=== PATIENT | male | born 1975 | race Caucasian/White ===

== ENCOUNTER 2024-10-27 19:08 | Emergency (ER) | payer BC, SELFPAY ==
[2024-10-27 19:15] VITALS: BP 149/83; PULSE 65; RESP 20; TEMP 37.1; O2SAT 99
[2024-10-27 19:52] LABS: Add Manual Diff / Slide Review NO; Basophils Absolute Auto 100 /uL (0-100); Basophils Percent Auto 1.1 % (0-2); Eosinophils Absolute Auto 200 /uL (0-450); Eosinophils Percent Auto 2.8 % (2-4); Hematocrit 45.5 % (41-53); Hemoglobin 15.7 g/dL (13.5-17.5); Lymphocytes Absolute Auto 3100 /uL (1100-4500); Lymphocytes Percent Auto 44.3 % (25-40); Mean Corpuscular HGB Conc 34.4 % (30-36); Monocytes Absolute Auto 600 /uL (0-900); Monocytes Percent Auto 8.3 % (3-14); Neutrophils Absolute Auto 3000 /uL (1500-7000); Neutrophils Percent Auto 43.5 % (50-75); Platelet Count 251 X10^3/uL (150-400); Red Blood Cell Count 4.75 X10^6/uL (4.5-5.9); Red Cell Distribution Width 13.4 % (11.6-14.8)
[2024-10-27 19:53] LABS: Appearance Urine UA CLEAR; Bilirubin Urine UA NEGATIVE (NEGATIVE); Color Urine UA YELLOW; Glucose Urine UA NEGATIVE (Negative); Ketones Urine UA NEGATIVE (NEGATIVE); Leukocyte Esterase Urine UA NEGATIVE (NEGATIVE); Nitrite Urine UA NEGATIVE (Negative); Occult Blood Urine UA NEGATIVE (Negative); Protein Urine UA NEGATIVE (Negative); Specific Gravity Urine UA 1.025 (1.000-1.035); Urobilinogen Urine UA 0.2 E.U./dL (0.2)
[2024-10-27 19:58] LABS: Ur Creatinine Normal (Normal); Ur Specific Gravity Normal (Normal); Urine pH Normal (Normal)
[2024-10-27 19:59] LABS: UR Morphine/Opiate cutoff 300 Negative (Negative); Urine Amphetamines Negative (Negative); Urine Barbiturates Negative (Negative); Urine Benzodiazepines Positive (Negative); Urine Cocaine Negative (Negative); Urine MDMA Negative (Negative); Urine Methadone Negative (Negative); Urine Methamphetamines Negative (Negative); Urine Oxycodone Negative (Negative); Urine Phencyclidine Negative (Negative); Urine Tetrahydrocannabinol Positive (Negative); Urine Tricyclic Antidepressant Negative (Negative)
[2024-10-27 20:09] LABS: Acetaminophen < 10 ug/mL (10-30); Alanine Aminotransferase 31 IU/L (<50); Albumin 4.7 g/dL (3.5-5.0); Albumin Globulin Ratio 1.4 (1.0-2.8); Alkaline Phosphatase 100 U/L (38-126); Aspartate Aminotransferase 37 IU/L (17-59); BUN Creatinine Ratio 12.5 (6-22); Blood Urea Nitrogen 12 mg/dL (9-20); Calcium 9.3 mg/dL (8.4-10.2); Carbon Dioxide 25 mmol/L (22-32); Chloride 107 mmol/L (98-107); Estimated Glomerular Filt Rate > 60 mL/min (>60); Ethanol (ETOH) < 10 mg/dL; Globulin 3.4 g/dL (1.7-4.1); Glucose 121 mg/dL (70-100); HEMOLYSIS < 15 (0-50); Potassium 3.7 mmol/L (3.4-5.1); Salicylate < 1.0 mg/dL (<20); Sodium 141 mmol/L (137-145); Total Protein 8.1 g/dL (6.3-8.2)
[2024-10-27 20:32] LABS: Free T4, Direct Thyroxine 1.14 ng/dL (0.78-2.19)
--- NOTE | 2024-10-27 20:42 | ED.PSYCH ---
HPI - Psych General Chief Complaint: Psychiatric Symptoms Stated Complaint: SI Time Seen by Provider: 10/27/24 20:41 Source: patient Mode of arrival: Ambulatory History of Present Illness HPI Narrative: 48-year-old male with history of psychiatric disorder, had been prescribed multiple medications, [facility] [place] [facility] [place] [place], not yet established with mental health professional system. Apparently they had frustration trying to get their chronic medications refilled, 1 of his 5 chronic medications was unable to be refilled by pharmacy. Apparently that he would him quite anxious, feeling quite panicked, requesting that he needs to be placed in an institution, might hurt himself. No specific plan. Related Data Home Medications Medication Instructions Recorded Confirmed alprazolam 1 mg tablet 1 mg PO BID PRN Anxiety 10/27/24 10/27/24 paroxetine HCl 40 mg tablet 40 mg PO DAILY 10/27/24 10/27/24 propranolol 40 mg tablet 40 mg PO TID 10/27/24 10/27/24 quetiapine 100 mg tablet 100 mg PO ONCE PM 10/27/24 10/27/24 zolpidem 10 mg tablet 10 mg PO ONCE PM PRN insomnia 10/27/24 10/27/24 Allergies Allergy/AdvReac Type Severity Reaction Status Date / Time No Known Drug Allergies Allergy Verified 10/27/24 19:28 Review of Systems Review of Systems Narrative: see HPI Exam Narrative Exam Narrative: GENERAL: Well-developed patient, in mild distress. HEAD: Atraumatic. Normocephalic. EYES: Pupils equal round and reactive. Extraocular motions intact. No scleral icterus. No injection or drainage. ENT: Nose without bleeding, purulent drainage. Throat without erythema, tonsillar hypertrophy or exudate. Airway patent. NECK: Trachea midline. Non tender CARDIOVASCULAR: Regular rate and rhythm without murmurs, gallops, or rubs. RESPIRATORY: Clear to auscultation. Breath sounds equal bilaterally. No wheezes, rales, or rhonchi. GASTROINTESTINAL: Abdomen soft, non-tender, nondistended. EXTREMITIES: No edema or joint tenderness. BACK: Nontender without deformity or crepitance. No flank tenderness. NEURO: AOx3. Motor functions grossly nonfocal Psychiatric: Poor eye contact, pacing, redirectable, denied starting hurting himself or others but nursing reports that he had suicidal ideation per phone between nursing and . SKIN: No rash or erythema of visible areas Initial Vital Signs Initial Vital Signs: Vital Signs Temperature 98.8 F 10/27/24 19:15 Pulse Rate 65 10/27/24 19:15 Respiratory Rate 20 10/27/24 19:15 Blood Pressure 149/83 H 10/27/24 19:15 Pulse Oximetry 99 10/27/24 19:15 Oxygen Delivery Method Room Air 10/27/24 19:15 Course Orders Ordered: ED Orders 10/27/24 19:19 Consult to LOGISTICS MANAGER - Air[employer]er Stat 10/27/24 19:28 COVID19 -Nasal RAPID Stat 10/27/24 19:30 Urine Drug Screen, Rapid Stat 10/27/24 19:40 Acetaminophen Stat Complete Blood Count AUTO DIFF Stat Comprehensive Metabolic Panel Stat Ethanol (ETOH) Stat Free T4, Direct Thyroxine Stat Salicylate Stat Thyroid Stimulating Hormone Stat UA Screen [Urinalysis Screen (Dip Only)] Stat Discontinued Medications Alprazolam (Alprazolam 0.25 Mg Tablet) 1 mg PO NOW ONE Stop: 10/27/24 21:56 Ondansetron HCl (Ondansetron 4 Mg Odt) 4 mg SL NOW ONE Stop: 10/28/24 00:09 Last Admin: 10/28/24 00:11 Dose: 4 mg Documented By: ARMIDA Pantoprazole Sodium (Pantoprazole Dr 20 Mg Tablet) 20 mg PO NOW ONE Stop: 10/28/24 00:09 Paroxetine HCl (Paroxetine 20 Mg Tablet) 40 mg PO DAILY SHAYNE Propranolol HCl (Propranolol 10 Mg Tablet) 40 mg PO TID SHAYNE Propranolol HCl (Propranolol 10 Mg Tablet) 40 mg PO TID SHAYNE Quetiapine Fumarate (Quetiapine 25 Mg Tablet) 50 mg PO NOW ONE Stop: 10/27/24 21:54 Zolpidem Tartrate (Zolpidem 5 Mg Tablet) 10 mg PO BEDTIME PRN PRN Reason: Sleep Vital Signs Vital signs: Vital Signs - 8 hr 10/27/24 19:15 Temperature 98.8 F Pulse Rate 65 Respiratory Rate 20 Blood Pressure 149/83 H Pulse Oximetry 99 Oxygen Delivery Method Room Air MDM - Psych Lab Data Attestation: I reviewed the patient's lab results. Lab results narrative: White blood cell count 7000, hemoglobin 15.7, platelets adequate. Basic metabolic panel unremarkable. Liver functions unremarkable. Urine drug screen positive for benzodiazepine and marijuana otherwise negative. Ethanol level negative. Acetaminophen/salicylate levels nonmeasurable. 10/27/24 19:40 10/27/24 19:40 Labs: Lab Results 10/27/24 10/27/24 Range/Units 19:30 19:40 WBC 7.0 (4.5-11.0) X10^3/uL RBC 4.75 (4.5-5.9) X10^6/uL Hgb 15.7 (13.5-17.5) g/dL Hct 45.5 (41-53) % MCV 96.0 (80-100) fL MCH 33.0 (26-34) PG MCHC 34.4 (30-36) % RDW 13.4 (11.6-14.8) % Plt Count 251 (150-400) X10^3/uL Neut % (Auto) 43.5 L (50-75) % Lymph % (Auto) 44.3 H (25-40) % Douglas % (Auto) 8.3 (3-14) % Eos % (Auto) 2.8 (2-4) % Baso % (Auto) 1.1 (0-2) % Neut # (Auto) 3000 (3571-2796) /uL Lymph # (Auto) 3100 (2577-5683) /uL Douglas # (Auto) 600 (0-900) /uL Eos # (Auto) 200 (0-450) /uL Baso # (Auto) 100 (0-100) /uL Sodium 141 (137-145) mmol/L Potassium 3.7 (3.4-5.1) mmol/L Chloride 107 (98-107) mmol/L Carbon Dioxide 25 (22-32) mmol/L BUN 12 (9-20) mg/dL Creatinine 0.96 (0.66-1.25) mg/dL Estimated GFR > 60 (>60) mL/min BUN/Creatinine Ratio 12.5 (6-22) Glucose 121 H (70-100) mg/dL Calcium 9.3 (8.4-10.2) mg/dL Total Bilirubin 1.0 (0.2-1.3) mg/dL AST 37 (17-59) IU/L ALT 31 (<50) IU/L Alkaline Phosphatase 100 (38-126) U/L Total Protein 8.1 (6.3-8.2) g/dL Albumin 4.7 (3.5-5.0) g/dL Globulin 3.4 (1.7-4.1) g/dL Albumin/Globulin Ratio 1.4 (1.0-2.8) TSH 4.58 (0.47-4.68) uIU/mL Free T4 1.14 (0.78-2.19) ng/dL Urine Color Yellow Urine Appearance Clear Ur Specific Becker 1.025 (1.000-1.035) Urine Protein Negative (Negative) Urine Glucose (UA) Negative (Negative) g/dL Urine Ketones Negative (NEGATIVE) Urine Occult Blood Negative (Negative) Urine Nitrate Negative (Negative) Urine Bilirubin Negative (NEGATIVE) Urine Urobilinogen 0.2 (0.2) E.U./dL Ur Leukocyte Esterase Negative (NEGATIVE) Salicylates < 1.0 (<20) mg/dL U Opiates 300ng/mL cut Negative (Negative) Ur Oxycodone Screen Negative (Negative) Urine Methadone Screen Negative (Negative) Acetaminophen < 10 (10-30) ug/mL Ur Barbiturates Screen Negative (Negative) U Tricyclic Antidepress Negative (Negative) Ur Phencyclidine Scrn Negative (Negative) Ur Amphetamines Screen Negative (Negative) U Methamphetamines Scrn Negative (Negative) Ur MDMA Scrn (Ecstasy) Negative (Negative) U Benzodiazepines Scrn Positive H (Negative) Urine Cocaine Screen Negative (Negative) U Marijuana (THC) Screen Positive H (Negative) Urine pH Normal 7.0 (Normal) Urine Specific Becker Normal (Normal) Ethyl Alcohol < 10 ( - 10) mg/dL Ur Creatinine Normal (Normal) [facility] Narrative Medical decision making narrative: 48-year-old male with psychiatric disorder apparently some pharmacy barrier to 1 of his chronic psychiatric medications, feels quite anxious, making apparent suicidal ideation per phone call triage nurse with his , patient not admitting to me that he is having thoughts of hurting himself or others. But he feels that he needs to be an inpatient. Screening labs sent, unremarkable. business services representative consult requested. Medication query, 5 medications listed, some have evening doses, we will attempt to give evening doses of his chronic psychiatric medication list. 2200, orders for listed medications entered. Alprazolam, paroxetine, propranolol, quetiapine, zolpidem. Meds were ordered, brought to the patient's bedside, apparently he did not want to take the medications. No family here. He is requesting to leave. We will consult GARRY. [id number], RN consult by phone with GARRY, who will be evaluating the patient. 013, evaluation by GARRY, plan for discharge home now, lives nearby with , who has been in contact by phone, patient has medications at home, crisis team to contact patient further at 11 later this morning. Return precautions discussed. Discharged home Discharge Plan Departure Patient Disposition: Home Clinical Impression: Anxiety Activity Restrictions/Additional Instructions: Worsening anxiety, screening labs unremarkable. Consultation with crisis counselor. Coordination with outpatient crisis team 11:00 a.m. later this morning. Continue chronic medications at home. Return earlier to this/nearest emergency department for any change worsening symptoms or any concerns prior Prescriptions: No Action alprazolam 1 mg tablet 1 mg PO BID PRN (Reason: Anxiety) quetiapine 100 mg tablet 100 mg PO ONCE PM propranolol 40 mg tablet 40 mg PO TID zolpidem 10 mg tablet 10 mg PO ONCE PM PRN (Reason: insomnia) paroxetine HCl 40 mg tablet 40 mg PO DAILY Referrals: Miscellaneous,Doctor, MD [Primary Care Provider] - Stand Alone Forms: Patient Portal/API/Survey
[2024-10-27 20:46] LABS: Thyroid Stimulating Hormone 4.58 uIU/mL (0.47-4.68)
--- NOTE | 2024-10-27 22:24 | PC.NURSE ---
POST FRAMER Note Patient is pacing room the nurse attempted to give meds and patient refused after nurse left the room patient bit his name band off and took off his shirt and socks. This POST FRAMER told another caregiver to make RN aware of his behavior.
--- NOTE | 2024-10-27 23:03 | PC.NURSE ---
Pt originally agreeable to take he evening medication. Once meds were brought into room, pt looked at meds and then refused them stating I want to leave Pt continues to pace room. not answer questions and now refusing to talk to this rn.
[2024-10-28] MEDS: ONDANSETRON 4 MG ODT SL (00:11)
--- NOTE | 2024-10-28 00:15 | PC.NURSE ---
Pt had episode of emesis. states hasn't eaten in two days, medicated with zofran which patient accepted willingly, offered him both protonix and food and assist with not eating. pt declined both protonix and food. states he just wants to go, Informed him of dcr coming to see him in about 45 min, pt continues to pace in room.
== END 2024-10-28 01:51 | disposition home or self-care (01) ==
PROVIDERS: Emergency Provider Emergency Medicine
DX: F41.9 Anxiety disorder, unspecified (principal)
CPT/HCPCS: 80053; 80305; 80320; 80329; 81003; 84439; 84443; 85025; 99283; 99284; G0480